=== PATIENT | male | born 1985 | race Caucasian/White ===

== ENCOUNTER 2016-08-09 15:15 | Emergency (ER) | payer MEDICAID ==
[~2016-08-09] VITALS: Wt 85.0 kg
[~2016-08-09 15:15] MED LIST: ALBU8.5H3
--- NOTE | 2016-08-09 15:57 | ERD ---
ER Documentation Chief Complaint Date/Time DATE: 08/09/16 TIME: 15:54 Chief Complaint RIGHT EYE REDNESS, PAIN HPI This is a 31-year-old male who presents with right eye pain and redness for 2 days. Patient thinks he may have got some stucco in his eye. He irrigated his eye at home but still thinks of something in his eye and he can see a small particle of foreign body in his eye. He has no visual changes. He has no draining from the eye. No photosensitivity, fever, nausea vomiting. ROS All systems reviewed and are negative except as per history of present illness. Medications Home Meds Active Scripts Erythromycin* (Erythromycin* Ophthalmic) 1 Applic Oint, 1 APPLIC RIGHT EYE QID for 7 Days Prov:RICKIE COX PA-C 08/09/16 Reported Medications Albuterol Sulfate* (Proair HFA*) 8.5 Gm Hfa.aer.ad 03/30/13 Allergies Allergies: Coded Allergies: No Known Allergy (Unverified , 03/30/13) PMhx/Soc Hx Miscellaneous Medical Probl: Yes (ASTHMA) Hx Alcohol Use: No Hx Substance Use: No Hx Tobacco Use: No FmHx Family History: No diabetes Physical Exam Vitals Vital Signs Date Time Temp Pulse Resp B/P Pulse Ox O2 Delivery O2 Flow Rate FiO2 08/09/16 15:18 97.8 79 18 135/75 98 Physical Exam General: well developed, well nourished, alert, nontoxic, no distress Head: normocephalic, atraumatic Eyes: Right eye has conjunctival injection and evidence of small 1-2 mm foreign body in the iris, pupils are equal round reactive to light, extraocular movements are intact, visual acuity is 20/20 in the left eye and 20/25 in the right and together 20/20 Neck: Supple, nontender, no lymphadenopathy, no midline tenderness Ears: no tenderness over mastoids bilaterally, TMs nonerythematous, no exudates in canal Oropharynx: no tonsilar erythema or edema, uvula midline, no exudates, no kissing tonsils, no drooling Respiratory: Clear to auscaultation bilaterally, speaks in full sentences, no use of accesory muscles or labored breathing, no rales, ronchi, or wheezing Cardiovascular: RRR, No murmurs Results 24 hrs Current Medications Medications (Trade) Dose Ordered Sig/Roque Route PRN Reason Start Time Stop Time Status Last Admin Dose Admin Tetracaine HCl (Tetracaine 0.5% Steri-Unit Babita) 1 drop ONCE ONCE BOTH EYES 08/09/16 16:00 08/09/16 16:01 DC 08/09/16 15:49 Fluorescein Sodium (Vnpvo-W-Xjcky) 1 strip ONCE ONCE RIGHT EYE 08/09/16 16:00 08/09/16 16:01 DC 08/09/16 15:49 Procedures/MDM 31-year-old male presents with foreign body in the left eye. His visual acuity is within normal limits, And furthermore denies any visual disturbances. Tetracaine was applied to the eye and fluorescein's examination was performed. There is a notable foreign body in the eye which was able to be removed with a large-bore needle. Patient was then placed on erythromycin ophthalmic ointment and given ophthalmology follow-up. Recommended this patient follow up with her primary care doctor within 48 hours or return to the emergency room for any worsening of symptoms. However this time I do believe there is suitable for outpatient management. I answered all their questions and they agreed with the plan and were discharged home. Departure Diagnosis: Primary Impression: Eye foreign body Condition: Stable RICKIE COX PA-C Aug 09, 2016 15:57
[2016-08-09] MEDS ORDERED: TETRACAINE 0.5% 4 ML OPH BOTH EYES ONE (16:00)
[2016-08-09] MEDS ORDERED: FLUORESCEIN STRIP RIGHT EYE ONE (16:00)
[2016-08-09] MEDS ORDERED: ERYTOPOI RIGHT EYE (16:02)
== END 2016-08-09 16:18 | disposition home or self-care (01) ==
LOC: FTE 15:15
DX: T15.11XA Foreign body in conjunctival sac, right eye, initial encounter (principal); J45.909 Unspecified asthma, uncomplicated; X58.XXXA Exposure to other specified factors, initial encounter; Y92.9 Unspecified place or not applicable
CPT/HCPCS: 65205; Z7502; Z7610

== ENCOUNTER 2017-11-20 21:53 | Emergency (ER) | END 2017-11-21 02:50 | disposition home or self-care (01) ==